=== PATIENT | male | born 1995 ===

== ENCOUNTER 2016-09-20 12:34 | Emergency (ER) | payer OTHER ==
[~2016-09-20] VITALS: Ht 170.2 cm; Wt 75.0 kg
[2016-09-20 12:39] VITALS: TEMP 36.7; Ht 170.2 cm; Wt 75.0 kg
[2016-09-20 13:21] VITALS: BP 114/78; PULSE 67; O2SAT 100
--- NOTE | 2016-09-20 15:14 | EMERGENCY ROOM VISIT NOTE ---
History Report prepared by Armandoibvidal: Eddie Norris Under the Supervision of: Dr. Td Gallagher D.O. First contact with patient: 12:45 Chief Complaint: SHOULDER DISLOCATION Stated Complaint: DISLOCATED SHOUDLER History of Present Illness The patient is a 21 year old male who presents to the Emergency Room with complaints of an acute right shoulder dislocation that occurred approximately 1200. The patient was throwing a ball when he hyperextended the shoulder and it dislocated. The patient dislocated his shoulder four different times in the past. The patient has also had right shoulder surgery. The patient usually reduces the shoulder himself. He denies any arm tingling, numbness, or weakness. There was not any trauma associated with the dislocation. The patient only had water this morning. Patient denies headache, change in vision, fevers, chest pain, shortness of breath, nausea, vomiting, diarrhea, pain with urination , and melena. Source of History: patient Onset: 1200 today Position: shoulder (right) Quality: other (dislocated) Timing: other (acute) Associated Symptoms: No SOB, No chest pain, No diarrhea, No fevers, No headache, No melena, No nausea, No numbness, No urinary symptoms, No vomiting, No weakness Review of Systems See HPI for pertinent positives & negatives. A total of 10 systems reviewed and were otherwise negative. Past Medical & Surgical Medical Problems: (1) Shoulder dislocation Family History No pertinent family history Social History Smoking Status: Never Smoker Housing Status: lives with roommate Occupation Status: [employer] Current/Historical Medications No Active Prescriptions or Reported Meds Allergies Coded Allergies: No Known Allergies (Unverified , 09/20/16) Physical Exam Vital Signs Date Time Temp Pulse Resp B/P Pulse Ox O2 Delivery O2 Flow Rate FiO2 09/20/16 13:21 67 14 114/78 100 09/20/16 12:39 36.7 79 16 135/94 100 Room Air Physical Exam GENERAL: Sitting up in bed, no acute distress, nontoxic, holding right shoulder. EYE EXAM: normal conjunctiva. OROPHARYNX: no exudate, no erythema, lips, buccal mucosa, and tongue normal and mucous membranes are moist NECK: supple, no nuchal rigidity, no adenopathy, non-tender LUNGS: Clear to auscultation. Normal chest wall mechanics HEART: no murmurs, S1 normal and S2 normal ABDOMEN: abdomen soft, non-tender, normo-active bowel sounds, no masses, no rebound or guarding. SKIN: no rashes and no bruising UPPER EXTREMITIES:Obvious deformity within glenoid fossa, humerus appears to be anterior along with chest wall. Neurovascularly intact prior and after procedure , includes flexion extension elbow wrist and fingers along with abduction intact. Radial pulses 2/4, sensation of deltoid intact. LOWER EXTREMITIES: No pitting edema. NEURO EXAM: Normal sensorium. Medical Decision & Procedures Procedure Anterior Shoulder Dislocation Reduction Indication: Right anterior shoulder dislocation. Verbal consent obtained. Risks and benefits were explained with the usual customary discussion. A time out was taken. Neurovascular examination before the procedure revealed intact. The right shoulder glenohumeral dislocation was reduced by placing the patient prone and applying gentle downward inline traction on the humerus, with the elbow flexed at 90 degrees, while scapula manipulation was applied. This resulted in an easy reduction without complication. Neurovascular examination after the procedure revealed intact. The patient had significant pain relief and tolerated the procedure well. ED Course ED COURSE: Vital signs were reviewed and were normal. The patients medical record was reviewed The above diagnostic studies were performed and reviewed. ED treatments and interventions as stated above. 1245: The patient was evaluated in room C1b. A complete history and physical examination was performed. 1250: Shoulder reduction performed. Please see procedural note above. 1255: Patient declined an X-ray. I discussed the risks with him. He verbalized understanding. 1255: Upon reevaluation, the patient's shoulder was successfully reduced. .I discussed my findings with the patient and he understands and agrees with the treatment plan. Based on the patients age, coexisting illnesses, exam and lab findings the decision to treat as an outpatient was made. The patient remained stable while under my care. Medical Decision Etiologies such as fracture, dislocation, neurovascular compromise, compartment syndrome, soft tissue injury, as well as others were entertained. Patient is a 21-year-old male who presents following dislocating his right shoulder. He notes that this occurred while throwing a ball and croup. He has done this several times in the past. Upon presentation he has a clear deformity in his right glenoid fossa with a humeral head being anterior. Patient is completely neurologically intact at this time. He was reduced as noted above in the procedure. He tolerated the procedure well. Reevaluation notes is completely neurologically intact. Recommended x-ray but he declined. Informed him of the risk and benefits of this as he could have an occult fracture and he understood. Recommended sling patient declined noting that he has one at home. Following this the patient was discharged. He declined any pain medications. Discussed with Pt concerning signs and symptoms to watch out for. Pt was instructed to follow up with their PCP and discussed with the patient their option to return to the ED at anytime for persistent or worsening symptoms. The appropriate anticipatory guidance and out-patient management, including indications for return to the emergency department, were explained at length to the patient and understood. Impression Primary Impression: Dislocation of right shoulder joint Scribe Attestation The scribe's documentation has been prepared under my direction and personally reviewed by me in its entirety. I confirm that the note above accurately reflects all work, treatment, procedures, and medical decision making performed by me. Departure Information Dispostion Home / Self-Care Prescriptions No Active Prescriptions or Reported Meds Referrals No Doctor, Assigned (PCP) Forms HOME CARE DOCUMENTATION FORM, IMPORTANT VISIT INFORMATION, WORK / SCHOOL INSTRUCTIONS Patient Instructions ED Dislocation Shoulder Redu, ED Immobilizer Shoulder, My [facility] Additional Instructions Please follow up with your primary care doctor with in the next 24 hours. Any worsening of your symptoms, please return to the ED immediately. This includes fevers greater than 100.4, numbness or weakness in her arm, worsening pain, recurrent dislocation, or any other concerning signs or symptoms from your standpoint. Please follow up with orthopedics as listed below. No return to any physical activity until you're seen by orthopedics. Problem Qualifiers Primary Impression: Dislocation of right shoulder joint Encounter type: initial encounter Qualified Codes: S43.004A - Unspecified dislocation of right shoulder joint, initial encounter
== END 2016-09-20 13:23 | disposition home or self-care (01) ==
LOC: C.EDB 12:35 → C.EDC 13:23
DX: S43.004A Unspecified dislocation of right shoulder joint, initial encounter (principal); X50.9XXA Other and unspecified overexertion or strenuous movements or postures, initial encounter